=== PATIENT | female | born 1950 | race Caucasian/White ===

== ENCOUNTER 2018-11-26 08:54 | Emergency (ER) | payer OTHER ==
[~2018-11-26] VITALS: Ht 157.5 cm; Wt 82.6 kg
[~2018-11-26 08:54] MED LIST: HYZAAR 50-12.1 UDTAB PO; IBUPROFEN800 MG PO; ORPH100T PO
== END 2018-11-26 10:37 | disposition home or self-care (01) ==
LOC: ER 08:54
DX: S83.8X1A Sprain of other specified parts of right knee, initial encounter (principal); S80.02XA Contusion of left knee, initial encounter; W18.39XA Other fall on same level, initial encounter; Y93.89 Activity, other specified; Y92.89 Other specified places as the place of occurrence of the external cause; Y99.8 Other external cause status

== ENCOUNTER 2022-11-04 13:56 | Emergency (ER) | payer OTHER ==
[~2022-11-04] VITALS: Ht 157.5 cm; Wt 74.8 kg
[2022-11-04] MEDS ORDERED: TROMBONEX CAPS1 EACH (15:06)
[2022-11-04] MEDS ORDERED: FORTEO2.4 ML SQ (15:06)
[2022-11-04] MEDS ORDERED: DICLOFENAC SODI75 MG PO (17:10)
== END 2022-11-04 17:36 | disposition home or self-care (01) ==
LOC: ER 13:56
DX: M79.651 Pain in right thigh (principal); I10 Essential (primary) hypertension

== ENCOUNTER 2024-10-22 01:37 | Emergency (ER) | payer OTHER ==
[~2024-10-22] VITALS: Ht 157.5 cm; Wt 74.8 kg
[~2024-10-22 01:37] MED LIST changes: +DICLOFENAC SODI75 MG PO; +FORTEO2.4 ML SQ; +TROMBONEX CAPS1 EACH
[2024-10-22] MEDS ORDERED: KETOROLAC TROMETHAMINE 60 MG VIAL IM STA (03:34)
[2024-10-22] MEDS ORDERED: TETANUS & DIPHTHERIA TOX,ADULT 0.5 ML VIAL IM STA (03:35)
[2024-10-22] MEDS ORDERED: KETOROLAC TROMETHAMINE 60 MG VIAL IM ONE (04:23)
[2024-10-22] MEDS ORDERED: DIPHTH,PERTUSS(ACELL),TET VAC 0.5 ML SYRINGE IM ONE (04:23)
== END 2024-10-22 05:30 | disposition home or self-care (01) ==
LOC: ER 01:37
DX: S02.2XXA Fracture of nasal bones, initial encounter for closed fracture (principal); S40.011A Contusion of right shoulder, initial encounter; W18.39XA Other fall on same level, initial encounter; Y93.89 Activity, other specified; Y92.013 Bedroom of single-family (private) house as the place of occurrence of the external cause; Y99.9 Unspecified external cause status

== ENCOUNTER 2024-12-15 14:08 | Inpatient (IN) | payer OTHER ==
[~2024-12-15] VITALS: Ht 157.5 cm; Wt 72.6 kg
--- NOTE | 2024-12-15 15:09 | NUR ---
PTE ALERTA Y ORIENTADA X3 REFIERE QUE PRESENTA DOLOR PELVICO DESDE HACE VERNON SEMANA. SE UBICA EN PASILLO AREA DE OBSERVACION Y SE CAIO S/V.
[2024-12-15] MEDS ORDERED: KETOROLAC TROMETHAMINE 30 MG VIAL IV ONE (15:30)
[2024-12-15] MEDS ORDERED: CIPROFLOXACIN IN 5 % DEXTROSE 400 MG/200 ML PIGGYBAG IV ONE (15:30)
[2024-12-15] MEDS ORDERED: 0.9 % SODIUM CHLORIDE 1,000 ML IV SCH (15:30)
[2024-12-15] MEDS ORDERED: METRONIDAZOLE/SODIUM CHLORIDE 500 MG/100 ML PIGGYBACK IV ONE (15:30)
--- NOTE | 2024-12-15 16:07 | NUR ---
PTE EVALUADO POR DR. MONET, PRESENTANDO DOLOR ABDOMINAL, SE REALIZA MELISSA DE MUESTRAS DE ILEANA BAJO MEDIDAS ASEPTICAS Y SE ADMINISTRAN MEDICAMENTOS ELSY ORDEN MEDICA. SE OFRECE ORIENTACION SOBRE PROCEDIMINETOS REALIZADOS Y PROCESO DE RE-EVALUACION MEDICA. CLIENTE ALERTA Y ORIENTADO SOSA LA INTERVENCION RN TOMANDO CONTRASTE PO PARA REALIZACION DE ESTUDIO RADIOLOGICO.
[2024-12-15 16:09] LABS: BASO % 0.4 % (0.1-1.2); EOS # 0.07 (0.04-0.54); EOS % 0.8 % (0.7-7.0); LYMPH # 2.28 (1.18-3.74); LYMPH % 26.7 % (19.3-53.1); MEAN PLATELET VOLUME 11.00 fl (9.4-12.4); MONO # 0.70 (0.24-0.82); MONO % 8.2 % (4.7-12.5); NEUT # 5.45 (1.56-6.13); NEUT % 63.7 % (34.0-71.1); RED CELL DISTRIBUTION WIDTH 12.0 % (11.6-14.4)
[2024-12-15 16:29] LABS: BUN CREA RATIO 16.0 (7.0-25.0); CREATININE SERUM 0.85 mg/dL (0.55-1.02); GFR 65.03; GLUCOSE FASTING 120.0 mg/dL (65-100); OSMOLALITY SERUM 277.0 MOSM/KG (275-295)
[2024-12-15 16:59] LABS: URINE APPEARANCE Cloudy; URINE BILIRRUBIN Negative (NEGATIVE); URINE BLOOD Trace; URINE COLOR Yellow; URINE GLUCOSE Negative (NEGATIVE); URINE KETONE Negative (NEGATIVE); URINE LEUKOCYTE Large; URINE NITRATE Positive; URINE PROTEIN Negative (NEGATIVE); URINE UROBILINOGEN 1.0 E.U./dl
[2024-12-15 17:00] LABS: URINE EPITHELIAL CELLS 14.6 uL (0.0-38.8); URINE RBC 21.1 uL (0.0-20.8); URINE WBC 2385.4 uL (0.0-23.2)
[2024-12-15 17:33] LABS: TYPE CELLS SQUAMOUS; URINE BACTERIA > 9821.5 uL (0.0-1933); URINE CAST 0.29 uL (0.0-1.40); URINE MUCUS SCANT
[2024-12-15] MEDS ORDERED: PIPERACILLIN/TAZOBACTAM SODIUM 3.375 GM in DEXTROSE 5 % IN WATER 100 ML IV SCH (21:50)
[2024-12-15] MEDS ORDERED: RINGERS SOLUTION,LACTATED 1,000 ML IV SCH (22:00)
[2024-12-15] MEDS ORDERED: ENALAPRILAT DIHYDRATE 1.25 MG/ML VIAL IV PRN (22:00)
[2024-12-15] MEDS ORDERED: ONDANSETRON HCL 4 MG in 0.9 % SODIUM CHLORIDE 50 ML IV PRN (22:00)
[2024-12-15] MEDS ORDERED: MORPHINE SULFATE 2 MG/ML CARTRIDGE IV PRN (22:00)
[2024-12-16 01:32] LABS: INR 1.13
[2024-12-16 02:37] VITALS: BP 126/79; O2SAT 97
[2024-12-16 08:00] VITALS: BP 123/75; O2SAT 97
[2024-12-16] MEDS ORDERED: ENOXAPARIN SODIUM 40 MG/0.4 ML SYRINGE SUBCUTANEO SCH (09:00)
[2024-12-16 16:00] VITALS: BP 137/78; O2SAT 98
[2024-12-17 00:50] VITALS: BP 130/74; O2SAT 95
[2024-12-17 08:47] LABS: BUN CREA RATIO 12.0 (7.0-25.0); CREATININE SERUM 0.59 mg/dL (0.55-1.02); GFR 99.1; GLUCOSE FASTING 70.0 mg/dL (65-100); OSMOLALITY SERUM 278.0 MOSM/KG (275-295)
[2024-12-17 09:07] VITALS: BP 130/76; O2SAT 97
[2024-12-17 16:23] VITALS: BP 112/69; O2SAT 96
[2024-12-17] MEDS ORDERED: PANTOPRAZOLE SODIUM 40 MG/VIAL VIAL IV NR (18:00)
[2024-12-18 01:22] VITALS: BP 125/79; O2SAT 96
[2024-12-18 08:00] VITALS: BP 131/67; O2SAT 97
[2024-12-18] MEDS ORDERED: PANTOPRAZOLE SODIUM 40 MG/VIAL VIAL IV SCH (09:00)
[2024-12-18 17:27] VITALS: BP 120/81; O2SAT 95
[2024-12-19 00:30] VITALS: BP 148/79; O2SAT 97
[2024-12-19 08:00] VITALS: BP 122/75; O2SAT 99
== END 2024-12-19 16:32 | disposition home or self-care (01) | DRG 392 ==
LOC: ER 14:11 → SURH 22:27
PROVIDERS: Emergency Medicine; General Practice; ADMIT Student in an Organized Health Care Education/Training Program; ATTEND Student in an Organized Health Care Education/Training Program
PROC: BW21YZZ Computerized Tomography (CT Scan) of Abdomen and Pelvis using Other Contrast (ICD-10-PCS; principal; 2024-12-15)
DX: K57.32 Diverticulitis of large intestine without perforation or abscess without bleeding (principal); K56.690 Other partial intestinal obstruction; K27.9 Peptic ulcer, site unspecified, unspecified as acute or chronic, without hemorrhage or perforation; R19.04 Left lower quadrant abdominal swelling, mass and lump; I10 Essential (primary) hypertension